=== PATIENT | female | born 1980 | race Two or more races ===

== ENCOUNTER 2017-03-09 19:27 | Emergency (ER) | payer MEDICAID ==
[2017-03-09 19:38] VITALS: BP 129/76; PULSE 80; RESP 16; TEMP 98.4; O2SAT 99
--- NOTE | 2017-03-09 19:45 | EDPHY ---
H & P Time Seen by Provider: 03/09/17 19:34 HPI/ROS: 36-year-old female presents complaining of left scapular pain with intermittent did not left arm numbness and tingling and at times left arm feels cold. She denies history of neck injury, car accident, falls. No recent illnesses, no fevers no chills. She states the symptoms have been intermittent for approximately 4 weeks. Her most recent job did require quite a bit of heavy lifting, however she does not recall a specific time of injury. Review of systems As per HPI General no fever no chills no weakness HEENT no eye pain no eye discharge. No eye redness, no sore throat Respiratory no cough, no shortness of breath Cardiac no chest pain, no peripheral edema GI no abdominal pain, no diarrhea, no constipation, no nausea, no vomiting no flank pain, no hematuria, no dysuria Musculoskeletal positive myalgias, no joint pain Heme no easy bruising, no easy bleeding Endo no polyuria, no polydipsia Skin no rashes, no pruritus Neuro no syncope, no dizziness, no headaches, paresthesias Psych is no suicidal ideation, no homicidal ideation Past Medical/Surgical History: None Social History: Denies alcohol or drug use Smoking Status: Never smoked Physical Exam: 36-year-old female alert and oriented no acute distress nontoxic appearance afebrile HEENT atraumatic normocephalic, extraocular muscles intact, anicteric Oropharynx negative for erythema negative exudate, tolerating her own secretions Neck supple no meningismus Lungs clear to auscultation bilaterally Heart regular rate and rhythm without murmur rub or gallop Abdomen nondistended normoactive bowel sounds soft nontender Back no CVA tenderness, no step-offs, no spinal tenderness Positive mild tenderness to palpation just medial to left scapula Extremities no cyanosis clubbing or edema Neuro alert and oriented, no focal deficits No reproducible neurologic deficits Constitutional: Initial Vital Signs Temperature (C) 36.9 C 03/09/17 19:36 Heart Rate 80 03/09/17 19:36 Respiratory Rate 16 03/09/17 19:36 Blood Pressure 129/76 H 03/09/17 19:36 O2 Sat (%) 99 03/09/17 19:36 O2 Delivery Mode Room Air Allergies/Adverse Reactions: No Known Allergies Allergy (Verified 03/09/17 19:34) Home Medications: Medication Instructions Recorded NK [No Known Home Meds] 03/09/17 Medical Decision Making - Diagnostics Imaging Results: Imaging Impressions Chest X-Ray 03/09/17 20:00 Impression: Normal. Cervical Spine CT 03/09/17 20:01 Impression: 1. No acute posttraumatic abnormality identified. 2. Reversal of the normal cervical curvature may reflect muscle spasm. 3. Multilevel disk bulges are seen, with no definite canal stenosis or neural foraminal impingement seen. If symptoms persist, MRI could be considered for further evaluation. Results called and discussed with Betty Cavazos M.D., on March 09, 2017 at 2100. ED Course/Re-evaluation: Patient seen and evaluated for left scapular pain intermittent left arm paresthesias. CT cervical spine Bulging disc at multiple levels Otherwise normal Chest x-ray Negative Impression Cervical radiculopathy by history, however current exam normal Plan Follow up with primary care physician Ibuprofen with food as needed for pain Return if worsening Differential Diagnosis: Neck strain, cervical disc herniation, cervical radiculopathy Departure - Departure Disposition: Home, Routine, Self-Care Clinical Impression: Cervical radiculopathy Condition: Good Instructions: Cervical Radiculopathy (ED) Additional Instructions: Follow up with primary care, if your symptoms continue you may need an MRI. Referrals: NONE *PRIMARY CARE P,. [Primary Care Provider] - As per Instructions [facility] [Provider Group] - As per Instructions
== END 2017-03-09 21:18 | disposition home or self-care (01) ==
LOC: CED 19:27
DX: M54.12 Radiculopathy, cervical region (principal)
CPT/HCPCS: 71020-PO; 72125-PO

== ENCOUNTER → 2018-01-11 | Outpatient (CLI) | payer MEDICAID | LOC: FIMAGING 12:04 | PROVIDERS: ATTEND Family Medicine | DX: N63.0 Unspecified lump in unspecified breast (principal); N64.4 Mastodynia ==

== ENCOUNTER → 2018-02-04 | Outpatient (CLI) | payer MEDICAID ==
[~2018-02-04] MED LIST: BUPIVACAINE 0.5% 30 ML SDV ONE; LIDOCAINE 1% 300 MG/30 ML SDV ONE; THROMBIN (BOVINE) 5,000 UNIT VIAL TP ONE
== END ==
LOC: FIMAGING 07:19
PROVIDERS: ATTEND Family Medicine
PROC: 0HBU3ZX Excision of Left Breast, Percutaneous Approach, Diagnostic (ICD-10-PCS; principal; 2018-02-04)
DX: N60.12 Diffuse cystic mastopathy of left breast (principal); N60.42 Mammary duct ectasia of left breast

== ENCOUNTER → 2018-07-12 | Outpatient (CLI) | payer MEDICAID | LOC: FIMAGING 13:41 | PROVIDERS: ATTEND Family Medicine | DX: N63.20 Unspecified lump in the left breast, unspecified quadrant (principal) ==

== ENCOUNTER → 2018-07-12 | Outpatient (CLI) | payer MEDICAID | LOC: FIMAGING 08:47 ==